=== PATIENT | female | born 2000 | race Caucasian/White ===

== ENCOUNTER → 2020-12-14 | Outpatient (CLI) | payer BC ==
--- NOTE | 2020-12-14 17:55 | Diagnostic Imaging Report ---
PROCEDURE: CT abdomen without contrast. TECHNIQUE: Multiple contiguous axial images were obtained through the abdomen without the use of intravenous contrast. Auto Exposure Controls were utilized during the CT exam to meet ALARA standards for radiation dose reduction. INDICATION: Nausea, vomiting, and weight loss. COMPARISON: None available. FINDINGS: Lung bases are clear. No pericardial or pleural effusion. No free intraperitoneal air. Assessment of the abdominal viscera is suboptimal without IV contrast. Allowing for this, the unenhanced liver is grossly normal. No radiopaque gallstones or biliary duct dilatation. The spleen is normal in size measuring 9 cm. No focal splenic lesion. The unenhanced pancreas is grossly normal. No adrenal mass. No renal stones or obstructive uropathy. No solid renal mass. The stomach is partially filled with fluid and has no wall thickening, though assessment is suboptimal due to its incomplete distention. No dilated loops of bowel that would indicate bowel obstruction. No pericolonic inflammatory change within the visualized portions of the colon. Normal regional skeleton. IMPRESSION: 1. No acute intra-abdominal process. 2. No lymphadenopathy or organomegaly. Dictated by: Dictated on workstation # [id number]
== END ==
LOC: RAD 13:45
PROVIDERS: ATTEND Nurse Practitioner Family
DX: R11.2 Nausea with vomiting, unspecified (principal); R10.13 Epigastric pain; R63.4 Abnormal weight loss
CPT/HCPCS: 74150